=== PATIENT | female | born 1945 | race Caucasian/White ===

== ENCOUNTER 2021-01-29 07:38 | Inpatient (IN) ==
--- NOTE | 2021-01-01 13:46 | PAT Medication Instructions ---
Medication Instructions Date of Service January 01, 2021 Home Medications esomeprazole magnesium [Nexium] 20 mg PO QAM acetaminophen [Pain Reliever] 1,000 mg PO QPM ibuprofen 400 mg PO QAM ASK your surgeon for instructions ibuprofen 400 mg PO QAM Take morning of surgery With a small sip of water, OTHERWISE NOTHING TO EAT OR DRINK AFTER MIDNIGHT: esomeprazole magnesium [Nexium] 20 mg PO QAM Take evening before surgery acetaminophen [Pain Reliever] 1,000 mg PO QPM Other Notes If you have any questions please call us at [phone] or [phone] or [phone] or [phone]
--- NOTE | 2021-01-05 10:47 | Anesthesiology Consultation ---
Date of Service January 05, 2021 Assessment & Plan (1) Encounter for pre-operative examination: COVID Status: As of 01/05 assessment, patient denies travel to endemic area, known exposure/sick contacts, or symptoms of COVID19. Patient instructed that they and their household members must follow strict social distancing guidelines, wear a mask in public and avoid travel/events/gatherings for 14 days prior to surgery. Preoperative COVID19 testing to be completed prior to surgery per surgeon's arrangements (pt reports 01/22). Patient made aware to self-isolate as much as possible between COVID testing and surgery. Chart Review Chart Review: Acceptable Risk for Surgery and Patient seen in Pre Admission Testing Teaching & Discussion Instructed NPO after midnight before surgery, except medications with 15 cc of water. Medication instructions provided according to the PAT guidelines. History Surgery Operation Date: 01/29/21 09:45 Proposed Procedures p Left Total Shoulder Arthroplasty Reverse(Left) - Lucius Timmons M.D. Height/Weight Height: 5 ft 2 in Weight: 70.4 kg Allergies Allergy/AdvReac Type Severity Reaction Status Date / Time No Known Allergies Allergy Verified 12/24/20 10:49 Medications Home Medications Medication Instructions Recorded Confirmed Last Taken esomeprazole magnesium [Nexium] 20 mg PO QAM 04/18/18 12/24/20 11/03/18 acetaminophen [Pain Reliever] 1,000 mg PO QPM 12/24/20 12/24/20 Unknown ibuprofen 400 mg PO QAM 12/24/20 12/24/20 Unknown Past Medical History Medical History GERD (gastroesophageal reflux disease) controlled Hx of Lyme disease 2014? 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 Han Hx of bilateral cataract extraction Hx of nephrolithotomy with removal of calculi Past Anesthesia History No Hx of Anesthesia Complications and No Family Hx of Anesthesia Complications History of PONV No Hx of PONV and No Hx of Motion Sickness Social History Smoking Status: Never smoker Do You Dip or Chew Tobacco: No Hx Alcohol Use: Yes Alcohol type: wine alcohol intake frequency: holidays/special occasions only Hx Substance Use: No substance use type: does not use Review of Systems Pt denies any recent chest pain, shortness of breath, palpitations, cough, fever, URI, or uncontrolled acid reflux (controlled with PPI). Physical Exam Vital Signs BP: 133/77 P: 69bpm SPO2: 97% RA T: 98.0 F R: 16 ENMT Mouth: + dentures and + edentulous Thyromental Distance: > or= 3.5 Finger Breadths Mallampati Class: IV Neck normal visual inspection and + limited neck extension Respiratory normal respiratory effort, lungs clear to auscultation Cardiovascular Rate/Rhythm: regular rate and regular rhythm Heart Sounds: + murmur (I/ systolic RSB) Extremities: no edema Testing Laboratory Results 01/05/21 10:57 01/05/21 10:57 PT 9.8 Seconds (9.0-12.0) 01/05/21 10:57 INR 1.0 (0.9-1.1) 01/05/21 10:57 APTT 26.5 Seconds (21.0-31.0) 01/05/21 10:57 Hemoglobin A1c 5.2 % (4.5-5.6) 01/05/21 10:57 Blood Type O Negative 01/05/21 10:57 Antibody Screen NEGATIVE 01/05/21 10:57 Electrocardiogram Date: 01/05/21 Findings: + NSR @ (63bpm) Left axis deviation. Possible anterior infarct. Nonspecific ST and T wave abnormality. Compared with EKG from 04/25/18, PACs are no longer present, NSTWA now evident in anterolateral leads. Chest X-Ray Date: 01/05/21 Findings: + NAD Echocardiogram Date: 05/04/18 EF: 60-65% Primary indication after review was deemed appropriate and the examination was performed. Normal LV chamber size with mild concentric LVH. Normal LV systolic function without regional wall motion abnormality. Grade 1 diastolic dysfunction. The aortic valve has 3 leaflets, moderate aortic valve sclerosis is present. Aortic stenosis is absent. Mild aortic valve regurgitation is present. Mild mitral regurgitation.
--- NOTE | 2021-01-05 12:40 | XRay Report ---
TWO VIEW CHEST CLINICAL HISTORY: Left shoulder pain. Preoperative examination. FINDINGS: PA and lateral chest radiographs are compared to study dated 04/25/2018. The cardiomediastin al silhouette is unremarkable. There is mild bibasilar scarring/atelectasis. No airspace consolidatio n or pleural effusion is identified. There is no pneumothorax. The skeletal structures are osteopenic . The bony thorax appears intact. Arthritic change is present in the shoulders. Degenerative change i s noted throughout the thoracic spine. IMPRESSION: No active disease in the chest. ACT 112: Negative or not required by law. Electronically signed by: Toby Enrique M.D. 01/05/2021 12:38 PM
[2021-01-05 12:52] LABS: Basophils # (auto) 0.03 K/uL (0-0.2); Basophils % (auto) 0.7 %; Eosinophils # (auto) 0.06 K/uL (0-0.5); Eosinophils % (auto) 1.4 %; Hematocrit (blood only) 38.9 % (37-47); Hemoglobin 12.8 g/dL (12.0-16.0); Lymphocytes # (auto) 1.55 K/uL (1.2-3.4); Lymphocytes % (auto) 35.1 %; Mean Corpuscular Hemoglobin 28.4 pg (25-34); Mean Corpuscular Hgb Conc 32.9 g/dL (32-36); Mean Corpuscular Volume 86.4 fL (80-100); Mean Platelet Volume 10.4 fL (7.4-10.4); Monocytes # (auto) 0.41 K/uL (0.11-0.59); Monocytes % (auto) 9.3 %; Neutrophils # (auto) 2.36 K/uL (1.4-6.5); Neutrophils % (auto) 53.5 %; Platelet Count 250 K/uL (130-400); RDW Coefficient of Variation 14.1 % (11.5-14.5); RDW Standard Deviation 44.6 fL (36.4-46.3); White Blood Count 4.41 K/uL (4.8-10.8)
[2021-01-05 13:09] LABS: Partial Thromboplastin Time 26.5 Seconds (21.0-31.0); Prothrombin Time 9.8 Seconds (9.0-12.0)
[2021-01-05 13:10] LABS: Albumin Level 3.7 gm/dl (3.4-5.0); BUN Creatinine Ratio 24.5 (10-20); Calcium 9.3 mg/dl (8.5-10.1); Creatinine Clr Calc Pharmacy 73.4 ml/min; Est GFR (African American) 102.5; Est GFR (Non-African American) 88.4; Potassium 3.9 mmol/L (3.5-5.1)
[2021-01-05 13:15] LABS: Estimated Average Glucose 103 mg/dl; Hemoglobin A1C 5.2 % (4.5-5.6)
--- NOTE | 2021-01-06 07:17 | Electrocardiogram Report ---
Test Reason : Blood Pressure : / mmHG Vent. Rate : 063 BPM Atrial Rate : 063 BPM P-R Int : 146 ms QRS Dur : 088 ms QT Int : 434 ms P-R-T Axes : 050 -31 -37 degrees QTc Int : 444 ms Normal sinus rhythm Left axis deviation Possible Anterior infarct Nonspecific ST and T wave abnormality Abnormal ECG When compared with ECG of 25-APR-2018 12:05, Premature atrial complexes are no longer Present Nonspecific T wave abnormality now evident in Anterolateral leads Confirmed by Amos Simon ([id number]) on 01/06/2021 7:17:16 AM Referred By: Lucius Timmons Confirmed By:Amos Simon
--- NOTE | 2021-01-28 12:50 | History & Physical Report ---
Date of Service January 28, 2021 Assessment & Plan (1) Primary osteoarthritis, left shoulder: She has very severe advanced bilateral glenohumeral joint arthritis. By imaging, this does look like primary glenohumeral joint arthritis, but she has high-grade partial-thickness tearing in her supraspinatus in the left shoulder, as well as fairly significant posterior glenoid wear. With these factors and her age, I think that she would be better suited for a reverse total shoulder than an anatomic. She also is well aware of her son's history, where I had to revise his anatomic total shoulder to a reverse due to postoperative rotator cuff rupture. We extensively discussed anatomic versus reverse total shoulders and the pros and cons of each approach. She is in agreement with the decision for reverse. We discussed further conservative treatment with repeat glenohumeral joint steroid injections, but she declines of these are minimally beneficial for her in the past. She would like to proceed with a left reverse total shoulder arthroplasty. Risks, benefits, and alternatives of surgery were explained in detail. The surgical procedure, as well as postoperative recovery and rehabilitation, was also explained in detail. Risks include bleeding; infection; damage to surrounding structures such as nerves, blood vessels, and tendons that run in the area; persistent pain or stiffness; hardware failure; dislocation; brachial plexus palsy; blood clots; or need for further surgery. The patient understands all of this and wishes to proceed with surgery. Preoperative workup was completed today, and informed consent was obtained. Present on Admission?: Yes History of Present Illness Chief Complaint: Left shoulder pain and weakness Primary Care Provider: Chris Flores MD Ms. Loaiza is a 75-year-old [id number] female with severe bilateral shoulder pain and weakness. They hurt her equally, but she is right-hand dominant and is interested in intervention on her left shoulder first. She has had pain for many years. She had bilateral glenohumeral joint steroid injections by Dr. Han in April 2019 without any improvement in her pain. This pain is severely limiting her activities of daily living. She cannot even get her arms up to the back of her head to wash her hair. Allergies Allergy/AdvReac Type Severity Reaction Status Date / Time No Known Allergies Allergy Verified 12/24/20 10:49 Home Medications Medication Instructions Recorded Confirmed Type esomeprazole magnesium [Nexium] 20 mg PO QAM 04/18/18 12/24/20 History acetaminophen [Pain Reliever] 1,000 mg PO QPM 12/24/20 12/24/20 History ibuprofen 400 mg PO QAM 12/24/20 12/24/20 History Past Med/Surg History Medical History GERD (gastroesophageal reflux disease) controlled Hx of Lyme disease 2014? 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 Han Hx of bilateral cataract extraction Hx of nephrolithotomy with removal of calculi Family History Other No family history of adverse response to anesthesia Social History Smoking Status: Never smoker Second Hand Exposure: No; Hx Alcohol Use: Yes Alcohol type: wine Hx Substance Use: No Preferred Language: Mongolian Communication Ability: Effective [employer] Required: No Beliefs That Will Affect Care: None Current Living Situation: Alone Feels Safe at Home: Yes Assistive Devices: Denture - Upper, Denture - Lower and Glasses Physical Exam Physical Exam: Examination of bilateral shoulders reveals severe limitation in shoulder range of motion bilaterally due to pain, with palpable crepitus during motion. Rotator cuff strength is globally weak bilaterally. Results & Data ([facility]) Diagnostic Findings Previous x-rays of bilateral shoulders from November 17 were reviewed. They show very severe advanced end-stage glenohumeral joint arthritis bilaterally, right roughly equal to left. There is significant posterior glenoid erosion bilaterally. No obvious proximal migration of the humeral head bilaterally. Previous MRI of the left shoulder from December 03 was reviewed. It shows very advanced glenohumeral joint arthritis with severe erosion of the humeral head and glenoid. There is posterior erosion of the glenoid with a type C glenoid. Her lower rotator cuff is largely intact, but there is high-grade partial- thickness tearing the anterior supraspinatus and superior subscapularis. She has significant tendinopathy of the biceps tendon in this area. She has a type III acromion. There are multiple intra-articular loose bodies.
[~2021-01-29 07:38] MED LIST: ACETAMINOPHEN 500 MG TAB PO SCH; BUPIVACAINE 0.5 % 5 MG/1 ML PF 10ML VIAL ONE; CeleBREX 200 MG CAP PO SCH; FAMOTIDINE 20 MG TAB PO SCH; GABAPENTIN 300 MG CAP PO SCH; LR 15ML/HR IV SCH; METOCLOPRAMIDE HCL 10 MG TABLET PO SCH; Scopolamine 1 MG TDSY TD SCH; TRANEXAMIC ACID 1,000 MG **IV Pre-op IV SCH; ceFAZolin 1000MG 1,000 MG/7.5 ML SYR IV SCH; dexAMETHasone 4 MG TAB PO SCH
[2021-01-29] MEDS ORDERED: fentaNYL citrate 100 MCG/2 ML VIAL ONE (09:05)
[2021-01-29] MEDS ORDERED: MIDAZOLAM HCL 1 MG/ML 2ML VIAL ONE (09:05)
[2021-01-29] MEDS ORDERED: ePHEDrine sulfate 50 MG/ML AMP IV PRN (09:25)
[2021-01-29] MEDS ORDERED: fentaNYL citrate 100 MCG/2 ML VIAL IV PRN (09:25)
[2021-01-29] MEDS ORDERED: ATROPINE SULFATE 0.1 MG/ML 10ML SYR IV PRN (09:25)
[2021-01-29] MEDS ORDERED: ONDANSETRON INJ 2 MG/ML 2 ML VIAL IV PRN ×2 (09:25→13:58)
--- NOTE | 2021-01-29 09:51 | History & Physical Bridge Note ---
Date of Service January 29, 2021 History & Physical Bridge Note I have examined the patient, reviewed the History & Physical and in the interval since the performance of the History & Physical I have noted the following changes of clinical significance: no changes noted
--- NOTE | 2021-01-29 10:54 | Procedure Note ---
Procedure Note Date of Service January 29, 2021 Radial arterial line placed in right radial preop in preparation for left shoulder surgery with Dr. Timmons. Right wrist prepped with chlorhexidine and draped with sterile towels. Site infiltrated with 0.25 cc of 1% lidocaine. 20 G angiocath placed under sterile technique utilizing sterile gloves, surgical hats and masks. Catheter threaded using seldinger technique with return of pulsatile, bright red blood. Site covered with occlusive dressing and taped in place. Waveform consistent with correct arterial placement. After placement, fingers of procedural hand had normal perfusion. Patient tolerated procedure well without complications. Abigail Mcgee MD, PhD Anesthesiologist Coding
[2021-01-29] MEDS ORDERED: ePHEDrine sulfate 50 MG/ML SYR ONE (11:22)
[2021-01-29] MEDS ORDERED: PROPOFOL IV EMULSION 10 MG/ML 20 ML VIAL IV ONE (11:22)
[2021-01-29] MEDS ORDERED: PHENYLEPHRINE HCL 10 MG/ML VIAL ONE (11:50)
[2021-01-29] MEDS ORDERED: LIDOCAINE 2% 2 ML VIAL/AMP(20MG/ML) INFIL ONE (11:50)
[2021-01-29] MEDS ORDERED: ONDANSETRON INJ 2 MG/ML 2 ML VIAL ONE (11:50)
[2021-01-29] MEDS ORDERED: DEXAMETHASONE SOD INJ 4 MG/ML VIAL ONE (11:50)
--- NOTE | 2021-01-29 12:16 | Post Operative Brief Note ---
Immediate Post Op Note v1 Date of Surgery January 29, 2021 Pre & Post Diagnosis Operation Date: 01/29/21 10:05 Pre-Op Diagnosis: Left Shoulder Osteoarthritis Post-Op Diagnosis: Left Shoulder Osteoarthritis I identified the patient and participated in the time-out.: Yes Procedure Operation Date: 01/29/21 10:05 Actual Procedures Left Reverse Total Shoulder Arthroplasty with Biceps Tenodesis - Lucius Timmons M.D. Surgeon Lucius Timmons Slinger Sequins Sim Ramos PA-C Estimated Blood Loss 75 Findings Consistent with Post-Op Diagnosis
--- NOTE | 2021-01-29 12:39 | Operative Report ---
Post Operative Report Pre & Post Diagnosis Operation Date: 01/29/21 10:05 Pre-Op Diagnosis: Left Shoulder osteoarthritis with rotator cuff tear Post-Op Diagnosis: Left Shoulder osteoarthritis with rotator cuff tear I identified the patient and participated in the time-out.: Yes Procedure Operation Date: 01/29/21 10:05 Actual Procedures Left reverse Total Shoulder Arthroplasty (03015) Open biceps tenodesis (18062) - Lucius Timmons M.D. Surgeon Lucius Timmons Supervisor Carding Sim Ramos PA-C Estimated Blood Loss 75 Findings Consistent with Post-Op Diagnosis Specimens None Drains None Anesthesia Type General Regional Complications none Disposition Disposition: Recovery Room Indications Ms. Loaiza is a 75-year-old female with severe left shoulder pain and weakness. History, clinical exam, and imaging were consistent with the above diagnosis. Risks, benefits, and alternatives of surgery were explained in detail. The patient understood all this and wished to proceed. Description of Procedure Components Implanted: Tornier Reverse Total Shoulder implants Perform glenoid baseplate: 25mm, 15 degree full wedge with 6.5mm central screw and 5.0mm peripheral screws Glenosphere: 36mm standard Ascend Flex humeral stem: 3B Standard length (74mm) Humeral tray: 3.5mm offset, +0mm thickness Polyethylene insert: 36mm, +6mm thickness Patient was identified in the preoperative holding area. Operative extremity was marked. Regional blockade was given by the Anesthesia Staff. Patient was then brought back to the operating room, and general anesthesia was induced without complication. Appropriate weight-based dose of Ancef was infused intravenously for antibiotic prophylaxis. The patient was then placed in the beachchair position. Left arm was then prepped and draped in a standard sterile fashion using Chlorhexidine prep. A standard deltopectoral incision was made through the skin and subcutaneous tissue. The cephalic vein was identified and retracted medially. Small branches to the deltoid were coagulated as necessary. The clavipectoral fascia was then incised and the subdeltoid space was opened. The rotator cuff was found to be deficient, and I therefore decided to perform a reverse total shoulder arthroplasty as planned preoperatively. The biceps tendon was identified within the bicipital groove and tenodesed at the superior border of the pectoralis tendon with #2 FiberWire suture. The biceps tendon was then divided proximal to the tenodesis site and the rotator interval was opened. The proximal portion of the biceps tendon was excised. The remaining subscapularis tendon was elevated subperiosteally off of the lesser tuberosity. The glenohumeral joint was then dislocated, and large osteophytes were debrided with a ronguer. The humeral head cut was then made in the appropriate inclination and version using the cutting guide. The intramedullary canal of the humerus was then opened with a canal finder. The humeral canal was then sequentially broached to the appropriate size. A protective cap was then placed on top of the humeral trial. I then turned my attention to the glenoid. The proximal stump of the biceps tendon was excised, along with the labrum circumferentially around the glenoid. The Blueprint drill guide was then positioned on the glenoid, and the guidepin w as then inserted. The 15 degree angled reamer was then inserted over the guidepin and an reamed to an appropriate depth. The central screw hole was drilled, and appropriate length 6.5mm central screw was selected. The baseplate was then implanted into place according to our preoperative Blueprint plan by tightening down the central screw. A peripheral 5mm nonlocking screw was placed postero-superiorly first for additional compression of the baseplate, and then additional locking 5 mm peripheral screws were placed to complete fixation of the baseplate. Glenosphere was then impacted and secured. A trial humeral tray and insert were placed on the trial humeral stem, and a trial reduction was carried out. Once I achieved acceptable joint stability and range of motion with the trial implants, the final humeral implants were assembled on the back table and then impacted into position. I then took the shoulder through full range of motion to ensure good stability and acceptable motion. Wound was then copiously irrigated with sterile saline. Deep fascia was closed with 0 V-lock suture. Subcutaneous tissue was closed with 2-0 V-lock, and skin was closed with 3-0 V-lock. Skin was then sealed with Dermabond. Sterile dressings were then applied with a waterproof silver-impregnated dressing, and the arm was placed into a sling. The patient was awakened from anesthesia and taken to the Post Anesthesia Care Unit in stable condition. There were no immediate complications from the procedure. I was present and scrubbed for the entire procedure, with the exception of final skin closure and dressing application. Due to the complex nature of the procedure, the entire surgery was performed with the operational assistance of Sim Ramos PA-C. The per diem physical therapist assistant, under direct supervision, was involved in the performance of all aspects of the surgical procedure including patient positioning, tissue retraction, hemostasis, wound closure, and dressing application. I attest to the content of the Intraoperative Record and any orders documented therein. Any exceptions are noted below.
--- NOTE | 2021-01-29 13:19 | Anesthesiology Progress Note ---
Date of Service January 29, 2021 Anesthesia Post Procedure Vital Signs Vital Signs: Temp Pulse Pulse Resp BP BP Pulse Ox 01/29/21 13:10 75 16 137/78 95 01/29/21 13:00 76 18 150/86 H 95 01/29/21 12:50 84 18 141/79 H 96 01/29/21 12:40 83 16 138/78 96 01/29/21 12:33 36.5 C 84 18 143/78 H 97 01/29/21 08:02 37 C 82 18 165/89 H 97 Transfer of Care Handoff Completed per policy Notes Mental Status: alert / awake / arousable and participated in evaluation Patient Amnestic to Procedure: Yes Nausea / Vomiting: adequately controlled Pain: adequately controlled Airway Patency, RR, SpO2: stable & adequate BP & HR: stable & adequate Hydration State: stable & adequate Anesthetic Complications: no major complications apparent and Pt Satisfied with anesthetic care Notes: block is functioning well
--- NOTE | 2021-01-29 13:27 | XRay Report ---
XR shoulder LT min 2V routine CLINICAL HISTORY: Post shoulder surgery COMPARISON STUDY: None. FINDINGS: Status post reverse left total shoulder arthroplasty. Hardware is intact. No fracture or di slocation. The heart appears enlarged. IMPRESSION: Status post reverse left total shoulder arthroplasty. No evidence for hardware complicat ion. ACT 112: Negative or not required by law. Electronically signed by: Ran Pena M.D. 01/29/2021 1:25 PM
[2021-01-29] MEDS ORDERED: oxyCODONE HCL IR 5 MG TAB (IMMEDIATE RELEASE) PO PRN (13:58)
[2021-01-29] MEDS ORDERED: METOCLOPRAMIDE HCL INJ 5 MG/ML 2 ML VIAL IV PRN (13:58)
[2021-01-29] MEDS ORDERED: NALOXONE HCL 0.4 MG/1 ML VIAL/CARP IV PRN (13:58)
[2021-01-29] MEDS ORDERED: MAGNESIUM HYDROXIDE SUSP 30 ML UDC PO PRN (13:58)
[2021-01-29] MEDS ORDERED: bisacodyL 10 MG SUPP PR PRN (13:58)
[2021-01-29] MEDS: SODIUM CHLORIDE 0.9% 1000ML 1,000 ML IV SCH ×2 (14:35→23:45)
[2021-01-29] MEDS: ACETAMINOPHEN 500 MG TAB PO SCH ×2 (14:35→20:40)
[2021-01-29] MEDS: Scopolamine CHECK PATCH PLACEMENT SCH ×2 (15:06→23:49)
--- NOTE | 2021-01-29 15:14 | Orthopedic Progress Note ---
Date of Service January 29, 2021 Assessment & Plan (1) Primary osteoarthritis, left shoulder: Status post left reverse total shoulder arthroplasty doing very well. -Antibiotics x24 hours -DVT prophylaxis with aspirin 325 mg daily -Active shoulder range of motion okay, no resisted elbow flexion or resisted forearm supination -Follow-up in orthopedics clinic with me in 2 weeks Admission and Anticipated Discharge Date Admission Date: January 29, 2021 Subjective Postop check Patient doing very well. She is resting comfortably. No complaints. She denies any pain in her left shoulder. Her nerve block is starting to wear off, and she is regaining motor and sensory function in her hand. Physical Exam Physical Exam: Left shoulder dressings are clean, dry, and intact. Results & Data ([facility]) Vital Signs (Past 12 Hours) Vital Signs Temp Pulse Pulse Pulse Pulse Resp BP 01/29/21 14:52 36.4 C L 71 16 01/29/21 14:29 36.4 C L 72 16 01/29/21 13:50 36.5 C 75 16 01/29/21 13:30 81 18 01/29/21 13:20 75 14 01/29/21 13:10 75 16 01/29/21 13:00 36.1 C L 76 18 01/29/21 12:50 84 18 01/29/21 12:40 83 16 01/29/21 12:33 36.5 C 84 18 01/29/21 08:02 37 C 82 18 165/89 H BP Pulse Ox 01/29/21 14:52 109/66 90 01/29/21 14:29 118/77 96 01/29/21 13:50 144/85 H 96 01/29/21 13:30 122/76 96 01/29/21 13:20 136/77 96 01/29/21 13:10 137/78 95 01/29/21 13:00 150/86 H 95 01/29/21 12:50 141/79 H 96 01/29/21 12:40 138/78 96 01/29/21 12:33 143/78 H 97 01/29/21 08:02 97 Diagnostic Findings Left shoulder postoperative x-rays were reviewed. Reverse total shoulder arthroplasty components in good position.
[2021-01-29] MEDS: IBUPROFEN 600 MG TAB PO SCH ×2 (17:48→23:45)
[2021-01-29] MEDS: ceFAZolin 1000MG 1,000 MG/7.5 ML SYR IV SCH (17:48)
[2021-01-29] MEDS: DOCUSATE SODIUM 100 MG CAP PO SCH (20:40)
[2021-01-29] MEDS ORDERED: SENNA 8.6 MG TAB PO SCH (21:00)
[2021-01-30] MEDS: ACETAMINOPHEN 500 MG TAB PO SCH ×2 (02:44→08:35)
[2021-01-30] MEDS: ceFAZolin 1000MG 1,000 MG/7.5 ML SYR IV SCH (02:45)
[2021-01-30] MEDS: IBUPROFEN 600 MG TAB PO SCH (05:51)
[2021-01-30 06:19] LABS: Hematocrit (blood only) 34.5 % (37-47); Hemoglobin 11.4 g/dL (12.0-16.0); Immature Granulocytes % (auto) 0.1 %; Lymphocytes # (auto) 1.08 K/uL (1.2-3.4); Mean Corpuscular Hemoglobin 28.4 pg (25-34); Mean Corpuscular Volume 85.8 fL (80-100); Mean Platelet Volume 10.1 fL (7.4-10.4); Monocytes # (auto) 0.66 K/uL (0.11-0.59); Monocytes % (auto) 7.3 %; Neutrophils # (auto) 7.27 K/uL (1.4-6.5); Neutrophils % (auto) 80.6 %; Platelet Count 232 K/uL (130-400); RDW Coefficient of Variation 13.9 % (11.5-14.5); RDW Standard Deviation 43.6 fL (36.4-46.3); Red Blood Count 4.02 M/uL (4.2-5.4); White Blood Count 9.02 K/uL (4.8-10.8)
[2021-01-30 06:20] LABS: Immature Granulocytes # (auto) 0.01 K/uL (0.00-0.02)
[2021-01-30 06:59] LABS: BUN Creatinine Ratio 16.2 (10-20); Calcium 7.7 mg/dl (8.5-10.1); Creatinine Clr Calc Pharmacy 69.2 ml/min; Est GFR (African American) 100.8 ml/min; Potassium 3.5 mmol/L (3.5-5.1)
--- NOTE | 2021-01-30 08:28 | Orthopedic Progress Note ---
Date of Service January 30, 2021 Assessment & Plan (1) Primary osteoarthritis, left shoulder: Admission and Anticipated Discharge Date Admission Date: January 29, 2021 75 yo female stable POD #1 s/p left reverse TSA 1. Med management 2. DVT prophylaxis- ASA, SCDs 3. PT/OT 4. D/C planning- home w/ OPPT Subjective Pt resting in bed, pain controlled, denies complaints Physical Exam Physical Exam: Silverlon dressing in place, fingers mobile, NVI Results & Data ([facility]) Vital Signs (Past 12 Hours) Vital Signs Temp Pulse Resp BP Pulse Ox 01/30/21 07:51 36.7 C 71 18 116/72 94 01/30/21 03:04 36.7 C 77 18 116/77 93 01/29/21 23:19 36.5 C 83 18 109/70 93 Laboratory Results 01/30/21 01/30/21 Range/Units 05:57 05:57 WBC 9.02 (4.8-10.8) K/uL RBC 4.02 L (4.2-5.4) M/uL Hgb 11.4 L (12.0-16.0) g/dL Hct 34.5 L (37-47) % MCV 85.8 (80-100) fL MCH 28.4 (25-34) pg MCHC 33.0 (32-36) g/dL RDW Std Deviation 43.6 (36.4-46.3) fL RDW Coeff of Denise 13.9 (11.5-14.5) % Plt Count 232 (130-400) K/uL MPV 10.1 (7.4-10.4) fL Immature Gran % (Auto) 0.1 % Neut % (Auto) 80.6 % Lymph % (Auto) 12.0 % [place] % (Auto) 7.3 % Eos % (Auto) 0.0 % Baso % (Auto) 0.0 % Neut # (Auto) 7.27 H (1.4-6.5) K/uL Lymph # (Auto) 1.08 L (1.2-3.4) K/uL [place] # (Auto) 0.66 H (0.11-0.59) K/uL Eos # (Auto) 0.00 (0-0.5) K/uL Baso # (Auto) 0.00 (0-0.2) K/uL Immature Gran # (Auto) 0.01 (0.00-0.02) K/uL Sodium 141 (136-145) mmol/L Potassium 3.5 (3.5-5.1) mmol/L Chloride 109 H (98-107) mmol/L Carbon Dioxide 25 (21-32) mmol/L Anion Gap 7.0 (3-11) BUN 10 (7-18) mg/dl Creatinine 0.62 (0.6-1.2) mg/dl Est Cr Clr Drug Dosing 69.2 ml/min Est GFR ( Amer) 100.8 ml/min Est GFR (Non-Af Amer) 87.0 ml/min BUN/Creatinine Ratio 16.2 (10-20) Glucose 102 H (70-99) mg/dl Calcium 7.7 L (8.5-10.1) mg/dl
[2021-01-30] MEDS: Scopolamine CHECK PATCH PLACEMENT SCH (08:35)
[2021-01-30] MEDS: DOCUSATE SODIUM 100 MG CAP PO SCH (08:37)
[2021-01-30] MEDS ORDERED: PANTOprazole 40 MG TAB PO SCH (09:00)
[2021-01-30] MEDS ORDERED: MULTIVITAMIN TAB PO SCH (09:00)
[2021-01-30] MEDS ORDERED: ASPIRIN 325 MG ECTAB PO SCH (09:00)
--- NOTE | 2021-02-02 17:15 | Discharge Summary ---
Date of Service February 02, 2021 Admission HPI Per Admitting Provider Ms. Loaiza is a 75-year-old [id number] female with severe bilateral shoulder pain and weakness. They hurt her equally, but she is right-hand dominant and is interested in intervention on her left shoulder first. She has had pain for many years. She had bilateral glenohumeral joint steroid injections by Dr. Han in April 2019 without any improvement in her pain. This pain is severely limiting her activities of daily living. She cannot even get her arms up to the back of her head to wash her hair. Principal Diagnosis Left shoulder arthritis with rotator cuff tear Discharge Data Allergies Allergy/AdvReac Type Severity Reaction Status Date / Time No Known Allergies Allergy Verified 01/29/21 07:54 Procedures Performed Operation Date: 01/29/21 10:05 Actual Procedures p Left Reverse Total Shoulder Arthroplasty(Left) - Lucius Timmons M.D. Ordered Studies 01/29/21 05:00 US - OR guided needle placemen Routine Hospital Course (1) Primary osteoarthritis, left shoulder: Patient underwent a left reverse total shoulder arthroplasty on the date of admission. Patient tolerated the procedure well and was transferred up to the general orthopedic surgery floor in stable condition. Perioperative antibiotic coverage was initiated, and continued for 24 hours postoperatively. DVT prophylaxis was initiated consisting of SCDs and aspirin 325 mg daily. Perioperative pain control regimen was transitioned to strictly oral pain medic ations by postoperative day 1. On postoperative day 1 the patient was doing very well. Pain was well controlled, and patient was mobilizing well with therapy. Patient was determined be safe and ready for discharge to home. Total Time Total Time Spent Total Time Spent (In Minutes): 15 Discharge Plan Discharge Items Patient Disposition: Home - Self-Care Reason For Visit: Left Shoulder Rotator Cuff Arthropathy Discharge Diagnosis: Left shoulder osteoarthritis with rotator cuff tear Activity: Per Instructions section Non-emergency contact: Surgeon Call non-emergency contact if: your pain is not controlled, your temperature is above 101.5, your wound has increased redness and your wound has increased drainage Follow-up/Referrals: Chris Flores MD [Primary Care Provider] - Lucius Timmons M.D. [Physician] - Diet: Regular Addtl Attending Provider Instructions: Things to Watch Out For -Go to the Emergency Room if you have sudden onset of nausea, vomiting, chest pain, shortness of breath, or uncontrollable pain. -Call the clinic or go to the Emergency Room if you have a sudden increase in the amount of wound drainage or the drainage becomes thick, yellow or green, or foul-smelling. -For routine questions, call the clinic at [phone] during regular business hours (8am-5pm). For urgent issues after regular business hours, you may call the clinic to be connected to the on-call physician. Dressings -A special waterproof, silver-impregnated dressing was placed on your shoulder. Keep this dressing in place for 1 week after surgery. You may shower with the waterproof dressing in place, but do not soak the dressing in the bathtub or pool. -One week after surgery, you may remove the waterproof dressing. You may continue to shower, and let water run BRIEFLY over the incision, but do not soak the incision in the bathtub or pool for 2 weeks. You may also gently clean the incision with mild soap and water; pat the incision dry after cleaning-do not rub the incision. Apply a new dressing daily thereafter. Shoulder Exercises -Keep your operative shoulder in the sling for comfort, except as detailed below. -You should come out of the sling 4-5 times a day for passive pendulum exercises: lean over and swing your arm in a circular pattern. -You should also do active-assisted forward flexion exercises: use your opposite hand to lift your operative arm forward to 90 degrees. -Do not flex your elbow (curl motion) or supinate your forearm (rotating palm up) against resistance. -Do not use your arm to push yourself up out of bed or up from a seated position. Ice Pack -You may use an ice pack for pain relief. You should use it 20-30 minutes at a time. Place a towel between the ice pack and your skin to prevent frostbite. -You should use the ice pack fairly regularly for the first 1-2 weeks after surgery to help reduce pain and inflammation. -About 2 weeks after your surgery, you should start using heat to loosen up your shoulder prior to doing your stretching exercises, then use the cooling sleeve after your exercises are complete to reduce swelling and pain. Pain Medicines -Your prescriptions for pain medications have already been sent to the pharmacy [facility]. -You have been prescribed an anti-inflammatory (Motrin/ibuprofen) and a non- narcotic pain medicine (Tylenol/acetaminophen). These are your primary pain medications. Take them each every 6 hours as instructed. It is recommended that you stagger these medicines every 3 hours (i.e. take ibuprofen at 8:00 am, then acetaminophen at 11:00 am, then ibuprofen at 2:00 pm, etc) -DO NOT take any additional anti-inflammatories (Advil, Aleve/naproxen, Mobic/meloxicam, Celebrex) or any additional Tylenol/acetaminophen products with these prescribed medications. -You have also been prescribed an additional narcotic pain medication (oxycodone). Take this medicine ONLY for breakthrough pain not controlled by the ibuprofen and acetaminophen. -Do not drive or operate heavy machinery while taking the narcotic medication. -Common side effects of narcotic pain medicines include itching, nausea, constipation, and feeling "loopy". However, if you develop a rash or hives, stop taking the medicine and call the clinic. If you develop swelling in your throat or difficulty breathing, go to the Emergency Room or call 911 IMMEDIATELY. -You may take over the counter stool softeners if needed for constipation. Aspirin -Take a full strength (325mg) aspirin every day for 4 weeks (28 days) to prevent blood clots. -If you were taking a baby aspirin (81mg) prior to surgery, you may resume taking this 81mg dose after you complete the 28-day course of the 325mg strength dose; do not take the 325mg dose in addition to your 81mg dose. -Be aware that you will bruise easier while taking Aspirin; this is normal. However, if you develop a significantly large area of swelling after an injury, or have a cut that will not stop bleeding, call the clinic or go to the Emergency Room immediately. Pending Studies at Discharge: No Stand-Alone Forms: My [facility] Medications and DC Order Prescriptions: Continued esomeprazole magnesium [Nexium] 20 mg Capsule,Delayed Release(Dr/Ec) 20 mg PO QAM RF: 0 Discontinued ibuprofen 200 mg Tablet 400 mg PO QAM RF: 0 acetaminophen [Pain Reliever (acetaminophen)] 500 mg tablet 1,000 mg PO QPM RF: 0 Discharge Orders: Discharge Order (Routine); Ordered 01/30/21 Ordered By: Sim Claudio/Other Patient Handouts: Total Shoulder Replacement Surgery Admission Data Admit Date/Time: 01/29/21 12:46 Attending Provider: Lucius Timmons Admit Provider: Lucius Timmons Primary Care Provider: Chris Flores Other Interventions: Discharge Summary Assessment (RN) Last Done: 01/30/21 10:22
== END 2021-01-30 11:29 | disposition home or self-care (01) | DRG 483 ==
LOC: ASU 07:38 → 3E 12:46

== ENCOUNTER 2022-02-11 05:06 | Observation (INO) ==
--- NOTE | 2021-12-17 11:56 | PAT Medication Instructions ---
Medication Instructions Date of Service December 17, 2021 Home Medications esomeprazole magnesium 20 mg capsule,delayed release (Nexium) 20 mg PO QAM acetaminophen 500 mg tablet 1,000 mg PO HS PRN Take morning of surgery With a small sip of water, OTHERWISE NOTHING TO EAT OR DRINK AFTER MIDNIGHT: esomeprazole magnesium 20 mg capsule,delayed release (Nexium) 20 mg PO QAM Take evening before surgery acetaminophen 500 mg tablet 1,000 mg PO HS PRN (if needed) Other Notes If you have any questions please call us at [phone] or [phone] or [phone] or [phone]
--- NOTE | 2021-12-18 10:19 | Anesthesiology Consultation ---
Date of Service December 18, 2021 Assessment & Plan (1) Encounter for pre-operative examination: - Pt reports upcoming pre-op appointment with PCP 12/22. - will attempt to obtain copy of previous echo. - COVID screening: Per assessment on 12/18/2021: Travel screen negative, no known COVID-19 positive contacts or current COVID-19 related symptoms in past 2 weeks. Surgeon arranging preop COVID testing, scheduled 01/12/2022. Awaiting results. Chart Review Chart Review: Pending: Refer to Additional Notes / Consult section and Patient seen in Pre Admission Testing Teaching & Discussion .npo History Surgery Operation Date: 01/14/22 09:10 Proposed Procedures p Right Shoulder Reversed Total Shoulder Arthroplasty - Lucius Timmons M.D. Height/Weight Height: 5 ft 2 in Weight: 65.8 kg Allergies Allergy/AdvReac Type Severity Reaction Status Date / Time No Known Allergies Allergy Verified 12/17/21 10:01 Medications Home Medications Medication Instructions Recorded Confirmed Last Taken esomeprazole magnesium 20 mg 20 mg PO QAM 04/18/18 12/17/21 01/28/21 07:00 capsule,delayed release (Nexium) acetaminophen 500 mg tablet 1,000 mg PO HS PRN 12/17/21 12/17/21 Unknown Past Medical History Medical History (Updated 12/18/21 @ 10:37 by Miri Ling PA-C) GERD (gastroesophageal reflux disease) controlled, stable per pt Hx of Lyme disease TREATED 2014-denies residual issues Kidney stones hx of Osteoarthritis Valvular disease 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 Exercise / Class Metabolic Activity II 4-5 Yardwork/Stairs/Walk up hill (denies CP or SOB with 1 FOS) Past Family History Family History Other No family history of adverse response to anesthesia No known health problems Past Surgical History Surgical History History of tooth extraction all teeth removed History of total knee arthroplasty R. 01/25/18: SAB L3-L4 x 1 + PNB. No postop issues per anesthesia progress note. History of total left knee replacement (TKR) 05/17/2018: SAB L3-L4 x 1 + PNB. No post-op issues per anesthesia progress note. History of total shoulder replacement LEFT. 01/29/2021: Grade 1 view, MAC 3, ETT 7.0 atraumatic x 1 + PNB. No postop issues per anesthesia progress note. Hx of bilateral cataract extraction Hx of nephrolithotomy with removal of calculi Past Anesthesia History No Hx of Anesthesia Complications and No Family Hx of Anesthesia Complications History of PONV No Hx of PONV and No Hx of Motion Sickness Social History Smoking Status: Never smoker Do You Dip or Chew Tobacco: No Hx Alcohol Use: Yes Alcohol type: wine alcohol intake frequency: 0-2 drinks per day Hx Substance Use: No substance use type: does not use Review of Systems Patient denies chest pain, shortness of breath, dyspnea on exertion, snoring, witnessed apneas, fever, chills, cough, wheezing, or palpitations. Physical Exam Vital Signs Vitals BP 150/86 P 72 TEMP 98.2 SP02 96% on RA RESP 17 Physical Limited cervical extension range of motion without pain Full TMJ range of motion TMD 3.5 finger breaths Mallampati Score 3, small oral opening Dentition: edentulous Lungs: normal respiratory effort. Clear throughout to auscultation, no adventitious breath sounds Cardiac: regular rate and rhythm, grade II/ systolic murmur LUSB Carotid arteries: negative bruit bilat Lab Results Anesthesia Preop Results Results Anesthesia Widget: WBC 4.33 K/uL (4.8-10.8) L 12/18/21 Hgb 12.6 g/dL (12.0-16.0) 12/18/21 Hct 38.9 % (37-47) 12/18/21 Plt 241 K/uL (130-400) 12/18/21 Na 138 mmol/L (136-145) 12/18/21 K 3.7 mmol/L (3.5-5.1) 12/18/21 Cl 102 mmol/L (98-107) 12/18/21 CO2 29 mmol/L (21-32) 12/18/21 BUN 9 mg/dl (6-23) 12/18/21 Creat 0.69 mg/dl (0.6-1.2) 12/18/21 Glucose Level 84 mg/dl (70-99(Fasting)) 12/18/21 PT 10.4 Seconds (9.0-12.0) 12/18/21 PTT 27.6 Seconds (21.0-31.0) 12/18/21 INR 1.0 (0.9-1.1) 12/18/21 HA1c 5.2 % (4.5-5.6) 12/18/21 Blood Type O Negative 12/18/21 Antibody Screen NEGATIVE 12/18/21 Testing Electrocardiogram Date: 12/18/21 NSR, rate 69 bpm Left axis deviation Poor R wave progression, consider anterior WA vs lead placement vs LVH No significant change was found from 01/05/2021 ECG Chest X-Ray Date: 12/18/21 FINDINGS: No pneumothorax. No pleural effusions. The cardiac silhouette is normal in size. No focal lung consolidations to suggest pneumonia. No evidence for pulmonary edema. There is left shoulder prosthesis. Advanced degenerative changes again noted within the right shoulder. 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 IMPRESSION: No significant change compared to the prior study. No acute process.
--- NOTE | 2022-02-10 16:24 | History & Physical Report ---
Date of Service February 10, 2022 Assessment & Plan (1) Primary osteoarthritis, right shoulder: Plan: She again has severe right shoulder glenohumeral joint arthritis. This again appears most consistent with primary glenohumeral joint arthritis, but she has significant rotator cuff tendinopathy, although no full-thickness tears. She does have a fair bit of fatty atrophy of the rotator cuff muscle bellies. I think we are basically in the same situation as her opposite shoulder. I think we could consider an anatomic total shoulder arthroplasty, but I would be worried about failure of her rotator cuff in the future that would require revision to a reverse. She would much prefer a reverse to match her other shoulder. I think this is the best option for her. We will therefore plan for a right reverse total shoulder arthroplasty. Risks, benefits, and alternatives of surgery were explained in detail. The surgical procedure, as well as postoperative recovery and rehabilitation, was also explained in detail. Risks include bleeding; infection; damage to surrounding structures such as nerves, blood vessels, and tendons that run in the area; persistent pain or stiffness; hardware failure; dislocation; brachial plexus palsy; blood clots; or need for further surgery. The patient understands all of this and wishes to proceed with surgery. Preoperative workup was completed today, and informed consent was obtained. History of Present Illness Primary Care Provider: Chris Flores MD Ms. Loaiza returns primarily today for her right shoulder. She again is a 76- year old female with severe right shoulder pain for many years. I previously replaced her left shoulder on 01/29/21. She is now almost 10 months out from her left reverse total shoulder arthroplasty and doing extremely well. Preoperatively, she had primary glenohumeral joint arthritis but had high-grade partial-thickness rotator cuff tearing and significant posterior glenoid wear, and we therefore decided to do a reverse rather than anatomic total shoulder arthroplasty. Her left shoulder is functioning extremely well, and she is very pleased with her outcome on that side. Her right shoulder continues to be very problematic for her. She last had a glenohumeral joint steroid injection by Dr. Han back in April 2019. She reports that she got no improvement from that injection. Her pain, strength, and function have all been progressively worsening over the past few years. Allergies Allergy/AdvReac Type Severity Reaction Status Date / Time No Known Allergies Allergy Verified 12/17/21 10:01 Home Medications Medication Instructions Recorded Confirmed Type esomeprazole magnesium 20 mg 20 mg PO QAM 04/18/18 12/17/21 History capsule,delayed release (Nexium) acetaminophen 500 mg tablet 1,000 mg PO HS PRN 12/17/21 12/17/21 History Past Med/Surg History Medical History (Updated 02/10/22 @ 16:23 by Lucius Timmons M.D.) GERD (gastroesophageal reflux disease) controlled, stable per pt Hx of Lyme disease TREATED 2014-denies residual issues Kidney stones hx of Osteoarthritis Valvular disease 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 01/25/18: SAB L3-L4 x 1 + PNB. No postop issues per anesthesia progress note. History of total left knee replacement (TKR) 05/17/2018: SAB L3-L4 x 1 + PNB. No post-op issues per anesthesia progress note. History of total shoulder replacement LEFT. 01/29/2021: Grade 1 view, MAC 3, ETT 7.0 atraumatic x 1 + PNB. No postop issues per anesthesia progress note. Hx of bilateral cataract extraction Hx of nephrolithotomy with removal of calculi Family History Other No family history of adverse response to anesthesia No known health problems Social History (Updated 12/17/21 @ 10:18 by Yaneli Rice RN) Smoking Status: Never smoker Second Hand Exposure: No; Hx Alcohol Use: Yes Alcohol type: wine Hx Substance Use: No Preferred Language: Setswana Communication Ability: Effective Bistro Server Required: No Beliefs That Will Affect Care: None Current Living Situation: Alone current occupational status: retired How many Children do You have: 5 Feels Safe at Home: Yes Assistive Devices: Glasses Physical Exam Physical Exam: Examination of the right shoulder shows fairly severe limitation in shoulder range of motion due to pain, with palpable crepitus during motion. She can only actively abduct up to about 80 degrees. Rotator cuff strength is globally weak. Results & Data ([facility]) Diagnostic Findings New x-rays were obtained today and compared to previous x-rays from October 2020. It does look like her severe glenohumeral joint arthritis has significantly progressed in the past year. She has more joint space narrowing, now basically complete obliteration of the joint space, and greater deformation of the humeral head. There appears to be rather severe erosion of the posterior glenoid, with a type C glenoid. New MRI of the right shoulder from December 01 was reviewed. It shows generalized rotator cuff tendinopathy, especially anterior aspect of the supraspinatus. I do not see any full-thickness retracted rotator cuff tears. However, she does have a surprising amount of fatty atrophy of the rotator cuff muscle bellies, including supraspinatus, infraspinatus, and upper border the subscapularis. Severe glenohumeral joint arthritis. Type C glenoid with severe posterior glenoid wear.
[2022-02-11] MEDS: GABAPENTIN 300 MG CAP PO SCH (05:52)
[2022-02-11] MEDS: FAMOTIDINE 20 MG TAB PO SCH (05:52)
[2022-02-11] MEDS: CeleBREX 200 MG CAP PO SCH (05:52)
[2022-02-11] MEDS: METOCLOPRAMIDE HCL 10 MG TABLET PO SCH (05:52)
[2022-02-11] MEDS: ACETAMINOPHEN 500 MG TAB PO SCH ×3 (05:52→22:21)
[2022-02-11] MEDS: dexAMETHasone 4 MG TAB PO SCH (05:52)
[2022-02-11] MEDS ORDERED: ceFAZolin 2000MG 2,000 MG/15 ML SYR IV SCH (06:00)
[2022-02-11] MEDS ORDERED: LR 500ML BOLUS IV SCH (06:00)
[2022-02-11] MEDS ORDERED: LR 15ML/HR IV SCH (06:00)
[2022-02-11] MEDS ORDERED: BUPIVACAINE 0.5 % 5 MG/1 ML PF 10ML VIAL ONE (06:16)
[2022-02-11] MEDS ORDERED: GLYCOPYRROLATE 0.2 MG/ML VIAL ONE ×2 (06:32→07:32)
[2022-02-11] MEDS ORDERED: LIDOCAINE 2% 2 ML VIAL/AMP(20MG/ML) INFIL ONE (06:32)
[2022-02-11] MEDS ORDERED: ONDANSETRON INJ 2 MG/ML 2 ML VIAL ONE (06:32)
[2022-02-11] MEDS ORDERED: PROPOFOL IV EMULSION 10 MG/ML 20 ML VIAL IV ONE (06:32)
[2022-02-11] MEDS ORDERED: DEXAMETHASONE SOD INJ 4 MG/ML VIAL ONE (06:32)
[2022-02-11] MEDS ORDERED: NEOSTIGMINE METHYLSULFATE 1 MG/ML 10ML VIAL ONE (06:32)
[2022-02-11] MEDS ORDERED: MIDAZOLAM HCL 1 MG/ML 2ML VIAL ONE (06:33)
[2022-02-11] MEDS ORDERED: ROCURONIUM BROMIDE 10 MG/ML 5 ML VIAL IV ONE (06:33)
[2022-02-11] MEDS ORDERED: fentaNYL citrate 100 MCG/2 ML VIAL ONE (06:33)
[2022-02-11] MEDS ORDERED: ATROPINE SULFATE 0.1 MG/ML 10ML SYR IV PRN (06:50)
[2022-02-11] MEDS ORDERED: ePHEDrine sulfate 50 MG/ML AMP IV PRN (06:50)
[2022-02-11] MEDS ORDERED: ONDANSETRON INJ 2 MG/ML 2 ML VIAL IV PRN ×2 (06:50→10:47)
[2022-02-11] MEDS ORDERED: fentaNYL citrate 100 MCG/2 ML VIAL IV PRN (06:50)
--- NOTE | 2022-02-11 07:05 | History & Physical Bridge Note ---
Date of Service February 11, 2022 History & Physical Bridge Note I have examined the patient, reviewed the History & Physical and in the interval since the performance of the History & Physical I have noted the following changes of clinical significance: no changes noted
[2022-02-11] MEDS ORDERED: ePHEDrine sulfate 50 MG/ML SYR ONE (07:32)
[2022-02-11] MEDS ORDERED: ePHEDrine sulfate 50 MG/ML AMP ONE (07:43)
--- NOTE | 2022-02-11 09:24 | Operative Report ---
Post Operative Report Pre & Post Diagnosis Operation Date: 02/11/22 07:00 Pre-Op Diagnosis: Right Shoulder Rotator Cuff Arthropathy Post-Op Diagnosis: Right Shoulder Rotator Cuff Arthropathy I identified the patient and participated in the time-out.: Yes Procedure Operation Date: 02/11/22 07:00 Actual Procedures Right reverse total shoulder arthroplasty (38805) Open biceps tenodesis (99269) - Lucius Timmons M.D. Surgeon Lucius Timmons Print Line Supervisor Sim Ramos PA-C Estimated Blood Loss 50 Findings Consistent with Post-Op Diagnosis Specimens None Drains None Anesthesia Type General Regional Complications none Disposition Disposition: Recovery Room Indications Ms. Loaiza is a 76-year-old female with longstanding right shoulder pain and weakness. History, clinical exam, and imaging were consistent with the above diagnosis. Risks, benefits, and alternatives of surgery were explained in detail. The patient understood all this and wished to proceed. Description of Procedure Components Implanted: [employer] Reverse Total Shoulder implants Vault Reconstruction System custom glenoid baseplate Glenosphere: 36mm Standard Comprehensive humeral stem: 11mm Micro length (55mm) Humeral tray: Standard Polyethylene insert: 36mm standard Patient was identified in the preoperative holding area. Operative extremity was marked. Regional blockade was given by the Anesthesia Staff. Patient was then brought back to the operating room, and general anesthesia was induced without complication. Appropriate weight-based dose of Ancef was infused intravenously for antibiotic prophylaxis. The patient was then placed in the beachchair position. Right arm was then prepped and draped in a standard sterile fashion using Chlorhexidine prep. A standard deltopectoral incision was made through the skin and subcutaneous tissue. The cephalic vein was identified and retracted medially. Small branches to the deltoid were coagulated as necessary. The clavipectoral fascia was then incised and the subdeltoid space was opened. The rotator cuff was found to be deficient, and I therefore decided to perform a reverse total sebastian ulder arthroplasty as planned preoperatively. The biceps tendon was identified within the bicipital groove and tenodesed at the superior border of the pectoralis tendon with #2 FiberWire suture. The biceps tendon was then divided proximal to the tenodesis site and the rotator interval was opened. The proximal portion of the biceps tendon was excised. The remaining subscapularis tendon was elevated subperiosteally off of the lesser tuberosity. The glenohumeral joint was then dislocated, and large osteophytes were debrided with a ronguer. The intramedullary canal of the humerus was then opened with a canal finder, and sequentially reamed until cortical chatter was achieved. The humeral head cut was then made in the appropriate inclination and version using the cutting guide. The humeral canal was then sequentially broached to the appropriate size. A protective cap was then placed on top of the humeral trial. I then turned my attention to the glenoid. The proximal stump of the biceps tendon was excised, along with the labrum circumferentially around the glenoid. The custom VRS glenoid implant was then positioned on the glenoid according to the preoperative plan, and guidepins were then inserted into the peripheral screw holes. The central screw hole was drilled, and appropriate length 6.5mm central screw was selected. Peripheral 4.75mm locking screws were then inserted into the peripheral screw holes. An appropriate sized glenosphere trial was then inserted, and offset adjusted as appropriate. A trial humeral tray and insert were placed on the trial humeral stem, and a trial reduction was carried out. Once I achieved acceptable joint stability and range of motion with the trial implants, the offset was set on the final glenosphere implant, which was then impacted onto the custom VRS baseplate. Humeral implants were assembled on the back table and then impacted into position. I then took the shoulder through full range of motion to ensure good stability and acceptable motion. Wound was then copiously irrigated with sterile saline. Deep fascia was closed with 0 V-lock suture. Subcutaneous tissue was closed with 2-0 V-lock, and skin was closed with 3-0 V-lock. Skin was then sealed with Dermabond. Sterile dressings were then applied with a waterproof silver-impregnated dressing, and the arm was placed into a sling. The patient was awakened from anesthesia and taken to the Post Anesthesia Care Unit in stable condition. There were no immediate complications from the procedure. I was present and scrubbed for the entire procedure, with the exception of final skin closure and dressing application. Due to the complex nature of the procedure, the entire surgery was performed with the operational assistance of Sim Ramos PA-C. The surgical first assistant, under direct supervision, was involved in the performance of all aspects of the surgical procedure including hemostasis, tissue incision and retraction, instrument management, patient positioning, and wound closure. I attest to the content of the Intraoperative Record and any orders documented therein. Any exceptions are noted below.
--- NOTE | 2022-02-11 10:09 | Anesthesiology Progress Note ---
Date of Service February 11, 2022 Anesthesia Post Procedure Vital Signs Vital Signs: Temp Pulse Pulse Resp BP Pulse Ox 02/11/22 10:00 36.3 C L 54 L 18 128/65 92 02/11/22 09:50 55 L 18 134/67 96 02/11/22 09:40 54 L 16 141/63 H 97 02/11/22 09:30 59 L 16 131/64 97 02/11/22 09:21 36.0 C L 84 20 132/74 96 02/11/22 05:32 36.9 C 77 18 125/96 96 Pain Intensity Right Shoulder: Pain Intensity: 3 Transfer of Care Handoff Completed per policy Notes Mental Status: alert / awake / arousable Patient Amnestic to Procedure: Yes Nausea / Vomiting: adequately controlled Pain: adequately controlled Airway Patency, RR, SpO2: stable & adequate BP & HR: stable & adequate Hydration State: stable & adequate Anesthetic Complications: no major complications apparent Notes: block working well in pacu
--- NOTE | 2022-02-11 10:16 | XRay Report ---
XR shoulder RT min 2V routine CLINICAL HISTORY: Post shoulder surgery COMPARISON: None FINDINGS: Alignment of the reverse total right shoulder arthroplasty is anatomic. No periprosthetic fracture or unexpected radiopaque foreign body. IMPRESSION: Expected findings following reverse total right shoulder arthroplasty. ACT 112: Negative or not required by law. Electronically signed by: Kareem Trinidad M.D. 02/11/2022 10:14 AM
[2022-02-11] MEDS ORDERED: bisacodyL 10 MG SUPP PR PRN (10:47)
[2022-02-11] MEDS ORDERED: NALOXONE HCL 0.4 MG/1 ML VIAL/CARP IV PRN (10:47)
[2022-02-11] MEDS ORDERED: oxyCODONE HCL IR 5 MG TAB (IMMEDIATE RELEASE) PO PRN (10:47)
[2022-02-11] MEDS ORDERED: METOCLOPRAMIDE HCL INJ 5 MG/ML 2 ML VIAL IV PRN (10:47)
[2022-02-11] MEDS ORDERED: MAGNESIUM HYDROXIDE SUSP 30 ML UDC PO PRN (10:47)
[2022-02-11] MEDS: TRANEXAMIC ACID 1,000 MG **IV Pre-op IV SCH (11:15)
[2022-02-11] MEDS: SODIUM CHLORIDE 0.9% 1000ML 1,000 ML IV SCH ×2 (11:42→21:24)
--- NOTE | 2022-02-11 13:16 | History & Physical Report ---
Date of Service February 11, 2022 Assessment & Plan (1) Primary osteoarthritis, right shoulder: (2) Status post reverse total arthroplasty of right shoulder: Plan: POD #0 EBL 50ml Check CBC in AM Pain control and DVT ppx per primary surgical team Continue PPI daily. Thank you for the consult. We will continue to follow while inpatient Admission and Anticipated Discharge Date Admission Date: February 11, 2022 History of Present Illness Chief Complaint: Post op management Primary Care Provider: Chris Flores MD 76-year-old woman with history of GERD, kidney stone, osteoarthrities of knee, left shoulder osteoarthritis with rotator cuff tear s/p Left reverese TSA in 01/2021 who just had a right reverse shoulder arthroplasty (TSA) today for right shoulder rotator cuff arthropathy. Reports right shoulder pain especially with activity for some time. Patient seen shortly after returning from the OR. Currently reports no pain in right upper extremity. Reports some drowsiness from effect of anesthesia. Denies any other complaints and review of systems Denies illicit drug use or smoking. Reports family history of gallstones and brothers Only takes Nexium for GERD at home. Allergies Allergy/AdvReac Type Severity Reaction Status Date / Time No Known Allergies Allergy Verified 02/11/22 05:30 Home Medications Medication Instructions Recorded Confirmed Type esomeprazole magnesium 20 mg 20 mg PO QAM 04/18/18 02/11/22 History capsule,delayed release (Nexium) acetaminophen 500 mg tablet 1,000 mg PO HS PRN 12/17/21 02/11/22 History Past Med/Surg History Medical History (Updated 02/10/22 @ 16:23 by Lcuius Timmons M.D.) GERD (gastroesophageal reflux disease) controlled, stable per pt Hx of Lyme disease TREATED 2014-denies residual issues Kidney stones hx of Osteoarthritis Valvular disease 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 01/25/18: SAB L3-L4 x 1 + PNB. No postop issues per anesthesia progress note. History of total left knee replacement (TKR) 05/17/2018: SAB L3-L4 x 1 + PNB. No post-op issues per anesthesia progress note. History of total shoulder replacement LEFT. 01/29/2021: Grade 1 view, MAC 3, ETT 7.0 atraumatic x 1 + PNB. No postop issues per anesthesia progress note. Hx of bilateral cataract extraction Hx of nephrolithotomy with removal of calculi Family History Other No family history of adverse response to anesthesia No known health problems Social History (Updated 12/17/21 @ 10:18 by Yaneli Rice RN) Smoking Status: Never smoker Second Hand Exposure: No; Do You Dip or Chew Tobacco: No; Hx Alcohol Use: Yes Alcohol type: wine Hx Substance Use: No Preferred Language: Guyanese Communication Ability: Effective Manufacturing Tech Required: No Beliefs That Will Affect Care: None Current Living Situation: Alone current occupational status: retired How many Children do You have: 5 Other Information That Helps Us Care for You: No Feels Safe at Home: Yes Safety Concerns: Feels Safe At This Time Assistive Devices: Glasses Assistive Devices Comment: WILL WEAR GLASSES DOS Review of Systems Constitutional: no fever and no chills Eyes: no eye pain and no photophobia Ear, Nose, Mouth, Throat: no ear pain, no ear discharge and no tinnitus Respiratory: no cough, no chest congestion and no dyspnea Cardiovascular: no chest pain, no dyspnea and no orthopnea Gastrointestinal: no abdominal pain, no nausea, no vomiting and no diarrhea/loose stools Genitourinary: no dysuria, no difficulty urinating, no urinary frequency and no urinary urgency Musculoskeletal: Right shoulder pain prior to surgery Neurologic: no generalized weakness and no tremor(s) Psychiatric: no depression and no anxiety Physical Exam Constitutional: + well hydrated; no acute distress Eyes: PERRL, conjunctivae normal, anicteric sclerae ENMT: external ear and nose normal, oropharynx normal Respiratory: normal respiratory effort, lungs clear to auscultation Cardiovascular: RRR, S1-S2 Gastrointestinal (Abdomen): normal bowel sounds, soft, nontender, no hepatosplenomegaly Musculoskeletal: Right upper extremity in sling. Clean dressing over surgical site. No pedal edema Neurologic: PERRL, EOMI, accommodation nl, no face palsy, no dysarthria Psychiatric: A+Ox3, euthymic affect Results & Data Results & Data ([facility]) Vital Signs (Past 12 Hours) Vital Signs Temp Pulse Pulse Resp BP Pulse Ox 02/11/22 12:30 36.3 C L 62 14 120/68 92 02/11/22 11:32 36.3 C L 81 16 105/63 97 02/11/22 11:04 36.4 C L 73 16 110/68 94 02/11/22 10:30 36.4 C L 73 14 121/73 96 02/11/22 10:10 53 L 16 118/57 L 96 02/11/22 10:00 36.3 C L 54 L 18 128/65 92 02/11/22 09:50 55 L 18 134/67 96 02/11/22 09:40 54 L 16 141/63 H 97 02/11/22 09:30 59 L 16 131/64 97 02/11/22 09:21 36.0 C L 84 20 132/74 96 02/11/22 05:32 36.9 C 77 18 125/96 96 Code Status & VTE Plan VTE Prophylaxis Plan VTE Prophylaxis will be ordered: Yes
--- NOTE | 2022-02-11 16:42 | Orthopedic Progress Note ---
Date of Service February 11, 2022 Assessment & Plan (1) Status post reverse total arthroplasty of right shoulder: Plan: Postoperative day #0 status post right reverse total shoulder arthroplasty -She may do right shoulder range of motion as tolerated. No resisted elbow flexion or forearm supination to protect her biceps tenodesis. Sling as needed for comfort and protection. -Likely discharge tomorrow. Admission and Anticipated Discharge Date Admission Date: February 11, 2022 Subjective Patient seen for postop check. She is resting comfortably in bed. She denies any pain in her right shoulder. Her nerve block is still working, and she has no appreciable motor function in her right arm yet. Physical Exam Physical Exam: Right shoulder dressings are clean, dry, intact. No motor or sensory function in the right arm yet, as her nerve block is still working. Results & Data ([facility]) Vital Signs (Past 12 Hours) Vital Signs Temp Pulse Pulse Resp BP Pulse Ox 02/11/22 15:58 36.3 C L 84 16 109/60 94 02/11/22 13:29 36.3 C L 67 16 112/69 91 02/11/22 12:30 36.3 C L 62 14 120/68 92 02/11/22 11:32 36.3 C L 81 16 105/63 97 02/11/22 11:04 36.4 C L 73 16 110/68 94 02/11/22 10:30 36.4 C L 73 14 121/73 96 02/11/22 10:10 53 L 16 118/57 L 96 02/11/22 10:00 36.3 C L 54 L 18 128/65 92 02/11/22 09:50 55 L 18 134/67 96 02/11/22 09:40 54 L 16 141/63 H 97 02/11/22 09:30 59 L 16 131/64 97 02/11/22 09:21 36.0 C L 84 20 132/74 96 02/11/22 05:32 36.9 C 77 18 125/96 96 Diagnostic Findings Right shoulder x-rays were reviewed. Reverse total shoulder arthroplasty components in good position.
[2022-02-11] MEDS: ceFAZolin 1000MG 1,000 MG/7.5 ML SYR IV SCH ×2 (17:13→23:30)
[2022-02-11] MEDS: IBUPROFEN 600 MG TAB PO SCH ×2 (17:13→22:21)
[2022-02-11] MEDS: DOCUSATE SODIUM 100 MG CAP PO SCH (20:09)
[2022-02-11] MEDS ORDERED: SENNA 8.6 MG TAB PO SCH (21:00)
[2022-02-12] MEDS: TRANEXAMIC ACID 1,000 MG **IV Pre-op IV SCH (05:17)
[2022-02-12] MEDS: IBUPROFEN 600 MG TAB PO SCH ×2 (05:26→10:22)
[2022-02-12] MEDS: ACETAMINOPHEN 500 MG TAB PO SCH ×2 (05:26→05:27)
[2022-02-12] MEDS: GABAPENTIN 300 MG CAP PO SCH (05:27)
[2022-02-12] MEDS: METOCLOPRAMIDE HCL 10 MG TABLET PO SCH (05:27)
[2022-02-12] MEDS: dexAMETHasone 4 MG TAB PO SCH (05:27)
[2022-02-12] MEDS: CeleBREX 200 MG CAP PO SCH (05:27)
[2022-02-12] MEDS: FAMOTIDINE 20 MG TAB PO SCH (05:27)
[2022-02-12 05:50] LABS: Basophils # (auto) 0.01 K/uL (0-0.2); Basophils % (auto) 0.1 %; Hematocrit (blood only) 33.5 % (37-47); Hemoglobin 11.1 g/dL (12.0-16.0); Immature Granulocytes # (auto) 0.01 K/uL (0.00-0.02); Immature Granulocytes % (auto) 0.1 %; Lymphocytes # (auto) 0.91 K/uL (1.2-3.4); Lymphocytes % (auto) 12.1 %; Mean Corpuscular Hgb Conc 33.1 g/dL (32-36); Mean Corpuscular Volume 84.4 fL (80-100); Mean Platelet Volume 10.1 fL (7.4-10.4); Monocytes % (auto) 6.7 %; Neutrophils # (auto) 6.08 K/uL (1.4-6.5); Platelet Count 200 K/uL (130-400); RDW Coefficient of Variation 13.9 % (11.5-14.5); RDW Standard Deviation 43.1 fL (36.4-46.3); Red Blood Count 3.97 M/uL (4.2-5.4); White Blood Count 7.51 K/uL (4.8-10.8)
[2022-02-12] MEDS: SODIUM CHLORIDE 0.9% 1000ML 1,000 ML IV SCH (06:04)
[2022-02-12 06:06] LABS: BUN Creatinine Ratio 16.1 (10-20); Creatinine Clr Calc Pharmacy 73.4 ml/min; Est GFR (African American) 103.5 ml/min; Est GFR (Non-African American) 89.3 ml/min; Potassium 4.1 mmol/L (3.5-5.1)
--- NOTE | 2022-02-12 07:40 | Orthopedic Progress Note ---
Date of Service February 12, 2022 Assessment & Plan (1) Status post reverse total arthroplasty of right shoulder: Plan: 76 yo female stable POD #1 s/p right shoulder reverse TSA 1. Med management 2. DVT prophylaxis- ASA, SCDs 3. PT/OT 4. D/C planning- home w/ OPPT Admission and Anticipated Discharge Date Admission Date: February 11, 2022 Subjective Pt resting, no complaints overnight, pain controlled Physical Exam Physical Exam: Right UE in shoulder immobilizer, fingers mobile, NVI, Silverlon dressing in place Results & Data ([facility]) Vital Signs (Past 12 Hours) Vital Signs Temp Pulse Resp BP Pulse Ox 02/12/22 06:23 36.5 C 71 16 122/65 94 02/12/22 02:05 36.7 C 73 17 132/71 93 02/11/22 22:30 36.4 C L 68 17 113/67 95 02/11/22 19:51 36.5 C 80 17 125/68 93 Laboratory Results 02/12/22 02/12/22 Range/Units 05:26 05:26 WBC 7.51 (4.8-10.8) K/uL RBC 3.97 L (4.2-5.4) M/uL Hgb 11.1 L (12.0-16.0) g/dL Hct 33.5 L (37-47) % MCV 84.4 (80-100) fL MCH 28.0 (25-34) pg MCHC 33.1 (32-36) g/dL RDW Std Deviation 43.1 (36.4-46.3) fL RDW Coeff of Denise 13.9 (11.5-14.5) % Plt Count 200 (130-400) K/uL MPV 10.1 (7.4-10.4) fL Immature Gran % (Auto) 0.1 % Neut % (Auto) 81.0 % Lymph % (Auto) 12.1 % [place] % (Auto) 6.7 % Eos % (Auto) 0.0 % Baso % (Auto) 0.1 % Neut # (Auto) 6.08 (1.4-6.5) K/uL Lymph # (Auto) 0.91 L (1.2-3.4) K/uL [place] # (Auto) 0.50 (0.11-0.59) K/uL Eos # (Auto) 0.00 (0-0.5) K/uL Baso # (Auto) 0.01 (0-0.2) K/uL Immature Gran # (Auto) 0.01 (0.00-0.02) K/uL Sodium 137 (136-145) mmol/L Potassium 4.1 (3.5-5.1) mmol/L Chloride 107 (98-107) mmol/L Carbon Dioxide 25 (21-32) mmol/L Anion Gap 5 (3-11) BUN 9 (6-23) mg/dl Creatinine 0.56 L (0.6-1.2) mg/dl Est Cr Clr Drug Dosing 73.4 ml/min Est GFR ( Amer) 103.5 ml/min Est GFR (Non-Af Amer) 89.3 ml/min BUN/Creatinine Ratio 16.1 (10-20) Glucose 95 (70-99(Fasting)) mg/dl Calcium 9.0 (8.5-10.1) mg/dl
--- NOTE | 2022-02-12 08:03 | Discharge Summary ---
Date of Service February 12, 2022 Admission HPI Per Admitting Provider 76-year-old woman with history of GERD, kidney stone, osteoarthrities of knee, left shoulder osteoarthritis with rotator cuff tear s/p Left reverese TSA in 01/2021 who just had a right reverse shoulder arthroplasty (TSA) today for right shoulder rotator cuff arthropathy. Reports right shoulder pain especially with activity for some time. Patient seen shortly after returning from the OR. Currently reports no pain in right upper extremity. Reports some drowsiness from effect of anesthesia. Denies any other complaints and review of systems Denies illicit drug use or smoking. Reports family history of gallstones and brothers Only takes Nexium for GERD at home. Principal Diagnosis Right shoulder arthritis Discharge Data Allergies Allergy/AdvReac Type Severity Reaction Status Date / Time No Known Allergies Allergy Verified 02/11/22 05:30 Consultations 02/08/22 17:35 Consult Hospitalist Routine Procedures Performed Operation Date: 02/11/22 07:00 Actual Procedures p Right Shoulder Reversed Total Shoulder Arthroplasty--Uncemented(Right) - Lucius Timmons M.D. Ordered Studies 02/11/22 05:00 US - OR guided needle placemen Routine Hospital Course (1) Primary osteoarthritis, right shoulder: Patient underwent a right reverse total shoulder arthroplasty on the date of admission. Patient tolerated the procedure well and was transferred up to the general orthopedic surgery floor in stable condition. Perioperative antibiotic coverage was initiated, and continued for 24 hours postoperatively. DVT prophylaxis was initiated consisting of SCDs and aspirin 325 mg daily. Pe rioperative pain control regimen was transitioned to strictly oral pain medications by postoperative day 1. On postoperative day 1 the patient was doing very well. Pain was well controlled, and patient was mobilizing well with therapy. Patient was determined be safe and ready for discharge to home. Total Time Total Time Spent Total Time Spent (In Minutes): 5 Discharge Plan Discharge Items Patient Disposition: Home - Self-Care Reason For Visit: Right Shoulder Rotator Cuff Arthropathy Discharge Diagnosis: Right shoulder rotator cuff tear arthropathy Activity: Per Instructions section Non-emergency contact: Surgeon Call non-emergency contact if: your pain is not controlled, your temperature is above 101.5, your wound has increased redness and your wound has increased drainage Follow-up/Referrals: Chris Flores MD [Primary Care Provider] - Eisenhuth,Lucius A, M.D. [Physician] - Diet: Regular Addtl Attending Provider Instructions: Things to Watch Out For -Go to the Emergency Room if you have sudden onset of nausea, vomiting, chest pain, shortness of breath, or uncontrollable pain. -Call the clinic or go to the Emergency Room if you have a sudden increase in the amount of wound drainage or the drainage becomes thick, yellow or green, or foul-smelling. -For routine questions, call the clinic at [phone] during regular business hours (8am-5pm). For urgent issues after regular business hours, you may call the clinic to be connected to the on-call physician. Dressings -A special waterproof, silver-impregnated dressing was placed on your shoulder. Keep this dressing in place for 1 week after surgery. You may shower with the waterproof dressing in place, but do not soak the dressing in the bathtub or pool. -One week after surgery, you may remove the waterproof dressing. You may continue to shower, and let water run BRIEFLY over the incision, but do not soak the incision in the bathtub or pool for 2 weeks. You may also gently clean the incision with mild soap and water; pat the incision dry after cleaning-do not rub the incision. Apply a new dressing daily thereafter. Shoulder Exercises -Keep your operative shoulder in the sling for comfort, except as detailed below. -You should come out of the sling 4-5 times a day for passive pendulum exerc ises: lean over and swing your arm in a circular pattern. -You should also do active-assisted forward flexion exercises: use your opposite hand to lift your operative arm forward to 90 degrees. -Do not flex your elbow (curl motion) or supinate your forearm (rotating palm up) against resistance. -Do not use your arm to push yourself up out of bed or up from a seated position. Ice Pack -You may use an ice pack for pain relief. You should use it 20-30 minutes at a time. Place a towel between the ice pack and your skin to prevent frostbite. -You should use the ice pack fairly regularly for the first 1-2 weeks after surgery to help reduce pain and inflammation. -About 2 weeks after your surgery, you should start using heat to loosen up your shoulder prior to doing your stretching exercises, then use the cooling sleeve after your exercises are complete to reduce swelling and pain. Pain Medicines -Your prescriptions for pain medications have already been sent to the pharmacy on file at [facility]. -You have been prescribed an anti-inflammatory (Motrin/ibuprofen) and a non- narcotic pain medicine (Tylenol/acetaminophen). These are your primary pain medications. Take them each every 6 hours as instructed. It is recommended that you stagger these medicines every 3 hours (i.e. take ibuprofen at 8:00 am, then acetaminophen at 11:00 am, then ibuprofen at 2:00 pm, etc) -DO NOT take any additional anti-inflammatories (Advil, Aleve/naproxen, Mobic/meloxicam, Celebrex) or any additional Tylenol/acetaminophen products with these prescribed medications. -You have also been prescribed an additional narcotic pain medication (oxycodone). Take this medicine ONLY for breakthrough pain not controlled by the ibuprofen and acetaminophen. -Do not drive or operate heavy machinery while taking the narcotic medication. -Common side effects of narcotic pain medicines include itching, nausea, constipation, and feeling "loopy". However, if you develop a rash or hives, stop taking the medicine and call the clinic. If you develop swelling in your throat or difficulty breathing, go to the Emergency Room or call 911 IMMEDIATELY. -You may take over the counter stool softeners if needed for constipation. Aspirin -Take a full strength (325mg) aspirin every day for 4 weeks (28 days) to prevent blood clots. -If you were taking a baby aspirin (81mg) prior to surgery, you may resume taking this 81mg dose after you complete the 28-day course of the 325mg strength dose; do not take the 325mg dose in addition to your 81mg dose. -Be aware that you will bruise easier while taking Aspirin; this is normal. However, if you develop a significantly large area of swelling after an injury, or have a cut that will not stop bleeding, call the clinic or go to the Emergency Room immediately. Pending Studies at Discharge: No Stand-Alone Forms: Anesthesia/Sedation, Adult, [facility] Medications and DC Order Prescriptions: New oxycodone 5 mg Tablet 5 - 10 mg PO Q6 PRNQty: 0 RF: 0 acetaminophen [Tylenol Extra Strength] 500 mg Tablet 1,000 mg PO Q8 Qty: 0 RF: 0 aspirin [Ecotrin] 325 mg Tablet,Delayed Release (Dr/Ec) 325 mg PO QAM Qty: 0 RF: 0 ibuprofen 600 mg Tablet 600 mg PO Q6H Qty: 0 RF: 0 Continued esomeprazole magnesium [Nexium] 20 mg Capsule,Delayed Release(Dr/Ec) 20 mg PO QAM RF: 0 Discontinued acetaminophen [Tylenol Ex Str Rapid Release] 500 mg Tablet 1,000 mg PO HS PRN (Reason: Pain) RF: 0 Discharge Orders: Discharge Order (Routine); Ordered 02/12/22 Ordered By: Sim Claudio/Other Patient Handouts: DVT Post Op Prevention, Total Shoulder Replacement Surgery Admission Data Admit Date/Time: 02/11/22 09:45 Attending Provider: Lucius Timmons Admit Provider: Lucius Timmons Primary Care Provider: Chris Flores Other Providers: Cassidy Celeste
[2022-02-12] MEDS: DOCUSATE SODIUM 100 MG CAP PO SCH (08:49)
[2022-02-12] MEDS ORDERED: MULTIVITAMIN TAB PO SCH (09:00)
[2022-02-12] MEDS ORDERED: ASPIRIN 325 MG ECTAB PO SCH (09:00)
[2022-02-12] MEDS ORDERED: PANTOprazole 40 MG TAB PO SCH (09:00)
--- NOTE | 2022-02-12 17:09 | Hospitalist Progress Note ---
Date of Service February 12, 2022 Assessment & Plan (1) Status post reverse total arthroplasty of right shoulder: Plan: (1) Primary osteoarthritis, right shoulder: (2) Status post reverse total arthroplasty of right shoulder: Plan: POD #1 EBL 50ml Hemoglobin fairly stable. Pain control and DVT ppx per primary surgical team Continue PPI daily. Thank you for the consult. We will continue to follow while inpatient Admission and Anticipated Discharge Date Admission Date: February 11, 2022 Subjective Patient seen and examined at bedside as a follow-up of status post reverse total arthroplasty of right shoulder. Patient was sitting up in chair, on room air, NAD, no new acute events overnight. Patient denies any headache/dizziness/chest pain/palpitation. Patient reports eating okay. Patient denies bowel movement but is moving gas. Patient denies any belly pain or pain or burning while passing urine or other acute review of symptoms. Physical Exam Physical Exam: GENERAL: Alert and oriented x3. NAD, on RA. HEENT: No pallor, no icterus. Pupils equal, round and reactive to light. Oral mucosa moist. NECK: No JVD, no neck masses. HEART: S1 and S2 heard. Regular rate and rhythm. No murmur, no gallop. RESPIRATORY SYSTEM: Normal AP diameter. No accessory muscle use. No wheezing, no crackles. ABDOMEN: Soft, bowel sounds present, nontender, no distention. CENTRAL NERVOUS SYSTEM: No facial droop. Speech is clear. Obeys simple commands. Moves extremities. EXTREMITIES: No edema, no erythema seen. Rt arm in sling Results & Data Results & Data ([facility]) Vital Signs (Past 12 Hours) Vital Signs Temp Pulse Resp BP Pulse Ox 02/12/22 10:05 36.5 C 71 16 122/65 94 02/12/22 06:23 36.5 C 71 16 122/65 94
== END 2022-02-12 10:35 | disposition home or self-care (01) ==
LOC: ASU 05:06 → 3E 05:06